=== PATIENT | male | born 1955 | race African-American/Black ===

== ENCOUNTER 2018-12-19 17:16 | Observation (INO) | payer OTHER ==
[2018-12-19 17:35] VITALS: BMI 29.0
--- NOTE | 2018-12-19 17:44 | PDOC ---
Rapid Medical Evaluation Chief Complaint: SIRS, Suspected/Possible Time Seen by Provider: 12/19/18 17:33 Medical Evaluation: Vital Signs Temp Pulse Resp BP Pulse Ox 99.7 F H 86 18 115/62 98 12/19/18 17:32 12/19/18 17:32 12/19/18 17:32 12/19/18 17:32 12/19/18 17:32 12/19/18 17:37 Pt c/o: fever/chills, infection? to lungs, sent by Dr. huang's office for weakness and cough, new PATRICIA on eliquis Pt on brief exam: Mild rll rhonchi, low grade temp, Pt ordered for: cbc, comp, lactic acid, cxr, iv Pt to proceed to the ED
[2018-12-19 19:03] LABS: BASO % 0.5 % (0-2.0); EOS % 0.5 % (0-4.5); HEMATOCRIT 42.5 % (35.4-49); HEMOGLOBIN 14.1 GM/dL (11.7-16.9); LYMPH % 17.9 % (8-40); MCH 29.9 pg (25.7-33.7); MCHC 33.1 g/dl (32.0-35.9); MEAN CELL VOLUME 90.4 fl (80-96); MEAN PLT VOLUME 8.8 fl (7.5-11.1); NEUT % 71.1 % (42.8-82.8); PLATELET COUNT 217 K/MM3 (134-434); RDW 13.7 % (11.9-15.9); WHITE BLOOD COUNT 10.5 K/mm3 (4.0-10.0)
[2018-12-19 19:36] LABS: ALBUMIN 3.5 g/dl (3.4-5.0); BILIRUBIN,TOTAL 0.8 mg/dL (0.2-1); CALCIUM 8.9 mg/dL (8.5-10.1); CREATININE 1.2 mg/dL (0.55-1.3); POTASSIUM 4.4 mmol/L (3.5-5.1)
--- NOTE | 2018-12-19 20:32 | PDOC ---
History of Present Illness - General Chief Complaint: SIRS, Suspected/Possible Stated Complaint: SENT BY DOCTOR Time Seen by Provider: 12/19/18 17:33 History Source: Patient Exam Limitations: No Limitations - History of Present Illness Initial Comments: 12/19/18 20:17 63 yo male pmh HTN, HLD, DM, CAD s/p PCI presents to the ED from PCP office for new onset afib started on eliquis. Pt admits to 3 days of URI symptoms with fevers and generalized body aches that resolved. Unknown when A fib began, pt does not know dosage of eliquis and occupational therapy instructor PCP does not have access to charts. Pt took am dosage including eliquis and ASA. Denies CP, SOB, back pain, changes in bowel or bladder habits. Pt had right sided calf swelling that resolved 2 days ago, denies calf tenderness, recent travel, CP, SOB Past History - Past Medical History Allergies/Adverse Reactions: Allergies Allergy/AdvReac Type Severity Reaction Status Date / Time No Known Allergies Allergy Verified 12/19/18 20:17 Home Medications: Ambulatory Orders Amlodipine Bes/Olmesartan Med [David 10-40 mg Tablet] 1 each PO DAILY 12/19/18 Aspirin [ASA -] 81 mg PO DAILY 12/19/18 Hydrochlorothiazide [Hctz -] 25 mg PO DAILY 12/19/18 Metoprolol Succinate [Toprol Xl -] 12.5 mg PO DAILY 12/19/18 Cardiac Disorders: Yes (Afib, CAD) COPD: No Diabetes: Yes HTN: Yes Hypercholesterolemia: Yes - Suicide/Smoking/Psychosocial Hx Smoking History: Current every day smoker Number of Cigarettes Smoked Daily: 10 Information on smoking cessation initiated: No Hx Alcohol Use: No Drug/Substance Use Hx: No *Physical Exam - Vital Signs Last Vital Signs Temp Pulse Resp BP Pulse Ox 100.3 F H 84 20 116/76 98 12/19/18 20:15 12/19/18 20:15 12/19/18 20:15 12/19/18 20:15 12/19/18 20:15 ED Treatment Course - LABORATORY CBC & Chemistry Diagram: 12/19/18 18:35 12/19/18 18:35 - ADDITIONAL ORDERS Additional order review: Laboratory Results 12/19/18 12/19/18 18:35 18:35 Sodium 137 Potassium 4.4 Chloride 100 Carbon Dioxide 26 Anion Gap 11 BUN 19 H Creatinine 1.2 Est GFR (CKD-EPI)AfAm 73.11 Est GFR (CKD-EPI)NonAf 63.08 Random Glucose 170 H Lactic Acid 1.6 Calcium 8.9 Total Bilirubin 0.8 AST 35 ALT 38 Alkaline Phosphatase 51 Total Protein 8.0 Albumin 3.5 12/19/18 18:35 RBC 4.70 MCV 90.4 MCHC 33.1 RDW 13.7 MPV 8.8 Neutrophils % 71.1 Lymphocytes % 17.9 Monocytes % 10.0 Eosinophils % 0.5 Basophils % 0.5 - RADIOLOGY Radiology Studies Ordered: Category Date Time Status DUPLEX VASCUL US-1 LEG [US] Stat Ultrasound 12/19/18 20:05 Ordered Medical Decision Making - Medical Decision Making 12/19/18 21:[address] Venegas, pt will be admitted to Tele obs with Cards consult to Dr. mSith Pt on Eliquis 12/19/18 22:09 Dr. Cruz occupational therapy instructor for Cardiology, case presented including elevated trop, states night dose of Eliquis is sufficient 12/19/18 23:[address] Sandhu, pt accepted to Hospitalist service *DC/Admit/Observation/Transfer Diagnosis at time of Disposition: Elevated troponin, Afib - Discharge Dispostion Condition at time of disposition: Stable Decision to Admit order: Yes - Referrals - Patient Instructions - Post Discharge Activity
[2018-12-19] MEDS ORDERED: ASPIRIN 81 MG CHEWABLE TABLETS PO ONE (21:39)
[2018-12-19] MEDS ORDERED: ASPIRIN 81 MG CHEWABLE TABLETS ONE (21:39)
[2018-12-19] MEDS ORDERED: ACETAMINOPHEN 1000 MG/100 ML VIAL (NON FORMULARY) IVPB ONE (21:39)
[2018-12-19] MEDS ORDERED: ACETAMINOPHEN INJECTION 100 ML IVPB ONE (21:39)
--- NOTE | 2018-12-19 22:37 | PN ---
Teaching Attending Note Name of Resident: Javier Sandhu ATTENDING PHYSICIAN STATEMENT I saw and evaluated the patient. I reviewed the resident's note and discussed the case with the resident. I agree with the resident's findings and plan as documented. SUBJECTIVE: Patient is a 63 year old man with a PMH of NIDDM, HTN, Tobacco use and HLD who was sent to the ER from the PCPs office with abnormal results. The patient was seen at Dr. Benavidez office yesterday, where he had an X-ray and blood work down. He was told by PCP to follow up at the ER concerning the results. The patient reports he was noted to be in rapid Afib at the office. The patient reports he s been having 2 days of generalized weakness, cough and leg swelling. The patient reports the leg swelling self-resolved about 1 day or 2 ago. Denies chest pain, SOB, back pain, recent travel, changes in bowel or bladder habits. OBJECTIVE: Alert Vital Signs Period Temp Pulse Resp BP Sys/Shepard Pulse Ox Last 24 Hr 99.7 F-100.3 F 84-86 18-20 115-116/62-76 98-98 HEENT: No Jaundice, eye redness or discharge, PERRLA, EOMI. Normocephalic, atraumatic. External ears are normal and hearing is grossly intact. No nasal discharge. Neck: Supple, nontender. No palpable adenopathy or thyromegaly. No JVD Chest: Good effort. Clear to auscultation and percussion. Heart: Irregularly irregular. No S3, rub or murmur Abdomen: Not distended, soft, nontender and no HSM. No rebound or guarding. Normal bowel sounds. Ext: Peripheral pulses intact. No leg edema. Fungal infection right big toe. Skin: Warm and dry. No petechiae, rash or ecchymosis. Neuro: Alert. Oriented x3. CN 2-12 grossly intact. Sensation grossly intact in all four extremities and DTR are symmetric. Psych: Appropriate mood and affect. Good insight. Home Medications Medication Instructions Recorded Amlodipine Bes/Olmesartan Med 1 each PO DAILY 12/19/18 [David 10-40 mg Tablet] Aspirin [ASA -] 81 mg PO DAILY 12/19/18 Hydrochlorothiazide [Hctz -] 25 mg PO DAILY 12/19/18 Metoprolol Succinate [Toprol Xl -] 12.5 mg PO DAILY 12/19/18 Abnormal Lab Results 12/19/18 12/19/18 18:35 18:35 WBC 10.5 H BUN 19 H Random Glucose 170 H Creatine Kinase 780 H Troponin I 0.20 H ASSESSMENT AND PLAN: 1. New onset Afib/Rule out ACS - Patient recently started on Eliquis and metoprolol for new onset Afib, now has elevated troponin, but no chest pain. EKG shows Afib with nonspecific T wave flattening. No DVT on leg doppler. Will admit to telemetry to rule out ACS. Had an ECHO on 12/07/18 that was normal. Will check TSH, fasting lipids and consult his cardiology to decide if he needs repeat ECHO. Mild leukocytosis and low grade fever are concerning, but there is no obvious source, though urinalysis is still pending. Says he had a cough with yellow sputum a few days and is a smoker, but has no infiltrate on CXR. Will send blood cultures, repeat rectal temperature and CBC and await result of urinalysis before deciding on antibiotics therapy. Will apply Clotrimazole antifungal cream to right big toe - patient counseled to stop walking barefoot on the beach and salt water in the [place]. 2. DM For now, we will implement sliding scale insulin regimen. Provide comprehensive diabetes care with patient teaching and counseling about the importance of adherence to prescribed diabetes regimen, euglycemia, eye care and foot care. 3. Tobacco Use Counseled on risks associated with tobacco use. We will provide patient all the necessary assistance to facilitate smoking cessation and prescribe Nicotine patch. 4. Overweight Counseled on the risks associated with being overweight. Will provide patient all the necessary assistance, counseling and positive reinforcement to facilitate weight loss. Consult mortar carrier. 5. Hypertension - Restart outpatient antihypertensive drugs and revise regimen to ensure smooth [id number] good BP control. Nonpharmacologic measures to control hypertension like weight loss, salt restriction and exercise discussed. 6. DVT prophylaxis - On Eliquis for Afib 7. Advance directives - Full code
--- NOTE | 2018-12-20 00:33 | HP ---
CHIEF COMPLAINT: Sent by PCP for EKG changes PCP: Dr. Yan Benavidez HISTORY OF PRESENT ILLNESS: Pt. is a 63 y.o. M w/ PMHx. of HTN, NIDDM, CAD(s/p two stents 10+ years ago), b/l carpal tunnel syndrome(s/p surgery on left hand) , and HLD presents with worsened swelling in the lower extremities. Pt. is confused as to why he was told to come into the hospital. Pt. endorses swelling of lower extrmeities R>L that started 2-4 days ago and resolved 2 days ago. Pt. endorses having upper respiratory symptoms and took echinaecia tea daily to reportedly goof effect. He does admit decreased appetite since these symptoms began but that it is now coming back. Pt. endorses a very dry mouth but no dysuria, hematuria, fever or chills. Pt. states he has submitted 3 UAs over the course of treatment. Pt. also endorses a productive cough with yellow sputum. Pt. currently denies any chest pain, shortness of breath, headache, abdominal pain, numbness or weakness. Pt. states he does not take HCTZ because it has decreased his ability to maintain an erection. ER course was notable for: (1)BCx., Ucx. and UA (2)CBC, BMP, EKG and SCR (3)Tylenol Recent Travel: No PAST MEDICAL HISTORY: As above PAST SURGICAL HISTORY: As above Social History: Smokin-2 cigs/ day for 1-2 years Alcohol: socially, but never more than 2 at one sitting Drugs: Denies Family History: Pt. denies father of heart disease, Pt. states that her uncle had a DVT that developed into PE. Allergies No Known Allergies Allergy (Verified 12/19/18 20:17) HOME MEDICATIONS: Home Medications Medication Instructions Recorded Amlodipine Bes/Olmesartan Med 1 each PO DAILY 12/19/18 [David 10-40 mg Tablet] Aspirin [ASA -] 81 mg PO DAILY 12/19/18 Hydrochlorothiazide [Hctz -] 25 mg PO DAILY 12/19/18 Metoprolol Succinate [Toprol Xl -] 12.5 mg PO DAILY 12/19/18 REVIEW OF SYSTEMS As above PHYSICAL EXAMINATION Vital Signs - 24 hr 12/19/18 12/19/18 17:32 20:15 Temperature 99.7 F H 100.3 F H Pulse Rate 86 Pulse Rate [ 84 Apical] Respiratory 18 20 Rate Blood Pressure 115/62 Blood Pressure 116/76 [Left Arm] O2 Sat by Pulse 98 98 Oximetry (%) GENERAL: Awake, alert, and fully oriented, in no acute distress. HEAD: Normal with no signs of trauma. EYES: Pupils equal, round and reactive to light, extraocular movements intact, sclera anicteric, conjunctiva clear. EARS, NOSE, THROAT: Ears normal, nares patent, no carotid bruit, oropharynx clear without exudates. Moist mucous membranes. NECK: Normal range of motion, supple without lymphadenopathy, JVD, or masses. LUNGS: Breath sounds equal, clear to auscultation bilaterally. No wheezes, and no crackles. No accessory muscle use. HEART: Regular rate and rhythm, normal S1 and S2 without murmur ABDOMEN: Soft, nontender, not distended, normoactive bowel sounds, no guarding, no rebound, no masses. MUSCULOSKELETAL: Normal range of motion at all joints. No bony deformities or tenderness. No CVA tenderness. UPPER EXTREMITIES: 2+ pulses, warm, well-perfused. No cyanosis. No clubbing. No peripheral edema. LOWER EXTREMITIES: 2+ dorsal pedal pulses, warm, well-perfused. No calf tenderness. No peripheral edema. Right Hallux fungal infection NEUROLOGICAL: Normal speech. Normal gait. PSYCHIATRIC: Cooperative. Good eye contact. Anxious and guarded, SKIN: Warm, dry flaky, normal turgor, normal capillary refill. Laboratory Results - last 24 hr 12/19/18 12/19/18 12/19/18 18:35 18:35 18:35 WBC 10.5 H RBC 4.70 Hgb 14.1 Hct 42.5 MCV 90.4 MCH 29.9 MCHC 33.1 RDW 13.7 Plt Count 217 MPV 8.8 Absolute Neuts (auto) 7.4 Neutrophils % 71.1 Lymphocytes % 17.9 Monocytes % 10.0 Eosinophils % 0.5 Basophils % 0.5 Nucleated RBC % 0 Sodium 137 Potassium 4.4 Chloride 100 Carbon Dioxide 26 Anion Gap 11 BUN 19 H Creatinine 1.2 Est GFR (CKD-EPI)AfAm 73.11 Est GFR (CKD-EPI)NonAf 63.08 Random Glucose 170 H Lactic Acid 1.6 Calcium 8.9 Total Bilirubin 0.8 AST 35 ALT 38 Alkaline Phosphatase 51 Creatine Kinase 780 H Creatine Kinase Index 0.4 CK-MB (CK-2) 3.4 Troponin I 0.20 H Total Protein 8.0 Albumin 3.5 ASSESSMENT/PLAN: Pt. is a 63 y.o. M w/ PMHx. of HTN, NIDDM, CAD(s/p two stents 10+ years ago), b/ l carpal tunnel syndrome(s/p surgery on left hand), and HLD presents with worsened swelling in the lower extremities. #New onset Afib associated with lower extremity edema c/w Telemtry evaluation ECHO on 12/07/18 that was normal f/u TSH Cardiology consult (Dr. Cruz) appreciated. ED resident discussed case w/ Dr. Fontenot and Eliquis 5mg BID is sufficient. Duplex Neg for DVT Trop 0.20--> 0.11 Denies chest pain #Leukocytosis w/ low grade temperature- resolving Hx. of fevers per Pt. to 102 degrees WBC count 10.9k--> 9.2k No clear source of infection Has fungal infection of R. Hallux, will start clomitrazole cream f/u BCx. f/u UCx. f/u UA--> though Pt. endorses that he has had 3 in the past few days which were all negative #HLD f/u lipid panel will base need to start statin on results #HTN Pt. refuses HCTZ- will consider restarting a new medication however BP is now within normal range. CXR: shows no acute pathology c/w David #NIDDM most recent labs from PCP office state A1c is 7.6 Hold oral medications BGM ACHS ISS ACHS #CAD s/p 2 stents c/w ASA #FEN no IVF, encourage PO intake monitor electrolytes and replete as needed Diabetic, Na controlled diet #DVT Ppx. c/w Eliquis BID Visit type - Emergency Visit Emergency Visit: Yes ED Registration Date: 12/19/18 Care time: The patient presented to the Emergency Department on the above date and was hospitalized for further evaluation of their emergent condition. - New Patient This patient is new to me today: Yes Date on this admission: 12/19/18 - Critical Care Critical Care patient: No
[2018-12-20 01:56] LABS: BASO % 0.9 % (0-2.0); EOS % 0.9 % (0-4.5); HEMATOCRIT 37.7 % (35.4-49); HEMOGLOBIN 12.7 GM/dL (11.7-16.9); LYMPH % 26.2 % (8-40); MCH 30.3 pg (25.7-33.7); MCHC 33.7 g/dl (32.0-35.9); MEAN PLT VOLUME 8.5 fl (7.5-11.1); PLATELET COUNT 189 K/MM3 (134-434); RBC 4.19 M/mm3 (4.00-5.60); RDW 13.7 % (11.9-15.9); WHITE BLOOD COUNT 9.2 K/mm3 (4.0-10.0)
--- NOTE | 2018-12-20 04:36 | PDOC ---
Documentation entered by Dolores Dailey SCRIBE, acting as scribe for Shelbie Darling MD. Shelbie Darling MD: This documentation has been prepared by the sumanthibe, Dolores Dailey SCRIBE, under my direction and personally reviewed by me in its entirety. I confirm that the documentation accurately reflects all work, treatment, procedures, and medical decision making performed by me. Attending Attestation - Resident Resident Name: Mario Lynne - ED Attending Attestation I have performed the following: I have examined & evaluated the patient, The case was reviewed & discussed with the resident, I agree w/resident's findings & plan - HPI HPI: 12/19/18 20:58 The patient is a 63 year old male with past medical history significant for DM, HTN, HLD was sent to the emergency department from PCPs office with abnormal results. The patient was seen at Dr. Benavidez office yesterday, where he had an X- ray and Blood work down. The patient reports following up with today for the results, and he was told by Go to follow up at the ER concerning the results. The patient reports he was noted to be in rapid Afib at the officer. The patient reports hes been having 2 days of generalized weakness, cough and leg swelling. The patient reports the leg swelling self-resolved about 1 day or 2 ago. Denies chest pain. Allergies: NKDA PCP: Dr. Chong Benavidez. - Physicial Exam PE: 12/19/18 23:43 GENERAL: Awake, alert, and fully oriented, in no acute distress HEAD: No signs of trauma EYES: PERRLA, EOMI, sclera anicteric, conjunctiva clear ENT: Auricles normal inspection, hearing grossly normal, nares patent, oropharynx clear without exudates. Moist mucosa NECK: Normal ROM, supple, no lymphadenopathy, JVD, or masses LUNGS: Breath sounds equal, clear to auscultation bilaterally. No wheezes, and no crackles HEART: Regular rate and rhythm, normal S1 and S2, no murmurs, rubs or gallops ABDOMEN: Soft, nontender, normoactive bowel sounds. No guarding, no rebound. No masses EXTREMITIES: Normal range of motion, no edema. No clubbing or cyanosis. No cords, erythema, or tenderness NEUROLOGICAL: Cranial nerves II through XII grossly intact. Normal speech, normal gait SKIN: Warm, Dry, normal turgor, no rashes or lesions noted. - Medical Decision Making 12/19/18 21:13 Pt's basic labs are normal; however his CPK and trop are elevated. He also has a hx of fevers at home, and today his fever is going up. 12/19/18 21:30 Call placed to Cardiology, waiting for a call back from Dr. Jalloh. 12/20/18 06:42 Pt admitted and awaiting a bed
[2018-12-20 05:44] LABS: URINE APPEARANCE CLEAR; URINE BILIRUBIN NEGATIVE (NEGATIVE); URINE COLOR YELLOW; URINE GLUCOSE (UA) NEGATIVE (NEGATIVE); URINE KETONE NEGATIVE (NEGATIVE); URINE LEUK ESTERASE NEGATIVE (NEGATIVE); URINE NITRITE NEGATIVE (NEGATIVE); URINE PROTEIN NEGATIVE (NEGATIVE)
[2018-12-20] MEDS ORDERED: CLOTRIMAZOLE 1% CREAM 15 GM TUBE TP SCH (10:00)
--- NOTE | 2018-12-20 10:44 | CONSULT ---
Consult Consult Specialty:: Cardiology Referred by:: ED/Medicine Reason for Consultation:: (+) Troponin, AFib - History of Present Illness Chief Complaint: cough and fever History of Present Illness: 63 yo AA male Followed by Dr. Venegas and Dr. Patel (Cards) Known DM Presented to PMD with 3 days of cough and fever to 101 Found to be in AFib and started on DOAC Sent to ED for further evaluation and found to have (+) low level troponin 0.2 to 0.11 Currently denies any chest pains, palps, dyspnea, (+) cough No thyroid problems or drug use - History Source History Provided By: Patient Limitations to Obtaining History: No Limitations - Past Medical History Endocrine: Yes: Diabetes Mellitus - Alcohol/Substance Use Hx Alcohol Use: No - Smoking History Smoking history: Current every day smoker Aproximately how many cigarettes per day: 10 Home Medications - Allergies Allergies/Adverse Reactions: Allergies Allergy/AdvReac Type Severity Reaction Status Date / Time No Known Allergies Allergy Verified 12/19/18 20:17 - Home Medications Home Medications: Ambulatory Orders Amlodipine Bes/Olmesartan Med [David 10-40 mg Tablet] 1 each PO DAILY 12/19/18 Aspirin [ASA -] 81 mg PO DAILY 12/19/18 Hydrochlorothiazide [Hctz -] 25 mg PO DAILY 12/19/18 Metoprolol Succinate [Toprol Xl -] 12.5 mg PO DAILY 12/19/18 Amoxicillin/Potassium Clav [Augmentin 500-125 Tablet] 1 each PO BID #10 tablet 12/20/18 Apixaban [Eliquis -] 5 mg PO BID #60 tablet 12/20/18 Family Disease History - Family Disease History Family History: Unremarkable Physical Exam Vital Signs: Vital Signs Temperature 98.1 F 12/20/18 07:32 Pulse Rate 74 12/20/18 07:32 Respiratory Rate 18 12/20/18 07:32 Blood Pressure 118/78 12/20/18 07:32 O2 Sat by Pulse Oximetry (%) 98 12/20/18 07:32 Constitutional: Yes: Well Nourished, No Distress Eyes: Yes: WNL Cardiovascular: Yes: Pulse Irregular Respiratory: Yes: CTA Bilaterally Gastrointestinal: Yes: Normal Bowel Sounds Extremities: Yes: WNL Edema: No Labs: CBC, BMP 12/20/18 01:40 12/19/18 18:35 Imaging - Results X-ray: Report Reviewed (No e/o radiographic pneumonia) Ultrasound: Report Reviewed (No DVT) EKG: Image Reviewed (ECG on 12/19/2018 at 20:31 Afib at 95/min) Assessment/Plan 63 yo male with h/o DM Now admitted with fever x 3 days and new onset AF 1) AF -Likely related to underlying HTN heart disease, DM and recent febrile illness -Well rate controlled now -Would continue his home Bystolic at 5mg daily -Continue Apixaban (CHADS-VASC = 3 favors AC) -May spontaneously convert as his fever goes down, but if not would pursue NICOLAS- guided DCCV on Saturday 2) (+) troponin -Flat trend, not consistent with ACS -Likely related to demand and fever state -
[2018-12-20 11:21] VITALS: TEMP 98.2
[2018-12-20] MEDS ORDERED: ACETAMINOPHEN 325 MG TABLET (FP) PO PRN (11:47)
[2018-12-20] MEDS ORDERED: APIXABAN 5 MG TABLET PO ONE (11:53)
[2018-12-20] MEDS ORDERED: NEBIVOLOL 5 MG TABLET (FP) PO SCH (12:00)
[2018-12-20] MEDS ORDERED: APIXABAN 5 MG TABLET PO SCH (12:00)
[2018-12-20 14:10] VITALS: BP 118/52; PULSE 84
[2018-12-20] MEDS ORDERED: ALBUTEROL SO4 0.083% IH SOL 2.5 MG/3 ML VIAL.NEB. NEB ONE (14:25)
[2018-12-20] MEDS ORDERED: AMOX TR/POT CLAV 500MG/125MG TABLETS (FP) PO ONE (14:26)
--- NOTE | 2018-12-20 14:41 | DS ---
Physical Exam: SUBJECTIVE: Patient seen and examined in the ED awaiting bed assignment. He was upset and wanted to go home. Explained that he was here for closer monitor (cardiac) as well as for fevers. but despite a long long conversation on monitoring his heart closer, he signed out AMA. OBJECTIVE: Patient is a 63 year old man with a PMH of NIDDM, HTN, Tobacco use and HLD who was sent to the ER from the PCPs office with abnormal results. The patient was seen at Dr. Benavidez office yesterday, where he had an X-ray and blood work down. He was told by PCP to follow up at the ER concerning the results. The patient reports he was noted to be in rapid Afib at the office. The patient reports he s been having 2 days of generalized weakness, cough and leg swelling. The patient reports the leg swelling self-resolved about 1 day or 2 ago. Denies chest pain, SOB, back pain, recent travel, changes in bowel or bladder habits. Vital Signs Period Temp Pulse Resp BP Sys/Shepard Pulse Ox Last 24 Hr 98.1 F-100.3 F 71-86 18-20 109-127/52-78 98-99 PHYSICAL EXAM GENERAL: The patient is awake, alert, and fully oriented, in no acute distress. HEAD: Normal with no signs of trauma. EYES: PERRL, extraocular movements intact, sclera anicteric, conjunctiva clear. ENT: Ears normal, nares patent, oropharynx clear without exudates, moist mucous membranes. NECK: Trachea midline, full range of motion, supple. LUNGS: Breath sounds equal, clear to auscultation bilaterally HEART: irregular ABDOMEN: Soft, nontender, nondistended, normoactive bowel sounds, no guarding, no rebound, no hepatosplenomegaly, no masses. EXTREMITIES: trace edema. NEUROLOGICAL: Normal speech, gait not observed. PSYCH: Normal mood, normal affect. SKIN: Warm, dry, normal turgor, no rashes or lesions noted. LABS Laboratory Results - last 24 hr 12/19/18 12/19/18 12/19/18 18:35 18:35 18:35 WBC 10.5 H RBC 4.70 Hgb 14.1 Hct 42.5 MCV 90.4 MCH 29.9 MCHC 33.1 RDW 13.7 Plt Count 217 MPV 8.8 Absolute Neuts (auto) 7.4 Neutrophils % 71.1 Lymphocytes % 17.9 Monocytes % 10.0 Eosinophils % 0.5 Basophils % 0.5 Nucleated RBC % 0 Sodium 137 Potassium 4.4 Chloride 100 Carbon Dioxide 26 Anion Gap 11 BUN 19 H Creatinine 1.2 Est GFR (CKD-EPI)AfAm 73.11 Est GFR (CKD-EPI)NonAf 63.08 POC Glucometer Random Glucose 170 H Lactic Acid 1.6 Calcium 8.9 Total Bilirubin 0.8 AST 35 ALT 38 Alkaline Phosphatase 51 Creatine Kinase 780 H Creatine Kinase Index 0.4 CK-MB (CK-2) 3.4 Troponin I 0.20 H Total Protein 8.0 Albumin 3.5 Triglycerides Cholesterol Total LDL Cholesterol HDL Cholesterol TSH Urine Color Urine Appearance Urine pH Ur Specific [place] Urine Protein Urine Glucose (UA) Urine Ketones Urine Blood Urine Nitrite Urine Bilirubin Urine Urobilinogen Ur Leukocyte Esterase 12/20/18 12/20/18 12/20/18 01:40 01:40 05:20 WBC 9.2 RBC 4.19 Hgb 12.7 Hct 37.7 MCV 90.0 MCH 30.3 MCHC 33.7 RDW 13.7 Plt Count 189 MPV 8.5 Absolute Neuts (auto) 5.8 Neutrophils % 63.0 Lymphocytes % 26.2 D Monocytes % 9.0 Eosinophils % 0.9 Basophils % 0.9 Nucleated RBC % 0 Sodium Potassium Chloride Carbon Dioxide Anion Gap BUN Creatinine Est GFR (CKD-EPI)AfAm Est GFR (CKD-EPI)NonAf POC Glucometer Random Glucose Lactic Acid Calcium Total Bilirubin AST ALT Alkaline Phosphatase Creatine Kinase Creatine Kinase Index CK-MB (CK-2) Troponin I 0.11 H Total Protein Albumin Triglycerides Cholesterol Total LDL Cholesterol HDL Cholesterol TSH Urine Color Yellow Urine Appearance Clear Urine pH 6.0 Ur Specific [place] 1.017 Urine Protein Negative Urine Glucose (UA) Negative Urine Ketones Negative Urine Blood Negative Urine Nitrite Negative Urine Bilirubin Negative Urine Urobilinogen 1.0 Ur Leukocyte Esterase Negative 12/20/18 12/20/18 12/20/18 06:17 07:57 07:57 WBC RBC Hgb Hct MCV MCH MCHC RDW Plt Count MPV Absolute Neuts (auto) Neutrophils % Lymphocytes % Monocytes % Eosinophils % Basophils % Nucleated RBC % Sodium Potassium Chloride Carbon Dioxide Anion Gap BUN Creatinine Est GFR (CKD-EPI)AfAm Est GFR (CKD-EPI)NonAf POC Glucometer 135 Random Glucose Lactic Acid Calcium Total Bilirubin AST ALT Alkaline Phosphatase Creatine Kinase 536 H Creatine Kinase Index 0.5 CK-MB (CK-2) 3.0 Troponin I 0.08 H Total Protein Albumin Triglycerides 86 Cholesterol 135 Total LDL Cholesterol 104 H HDL Cholesterol 24 L TSH 1.05 Urine Color Urine Appearance Urine pH Ur Specific [place] Urine Protein Urine Glucose (UA) Urine Ketones Urine Blood Urine Nitrite Urine Bilirubin Urine Urobilinogen Ur Leukocyte Esterase HOSPITAL COURSE: Date of Admission:12/19/18 Date of Discharge: 12/20/18 Patient was seen and examined in the ED. He is alert and oriented to person, place, time and situation. He is here for cardiac monitoring and also has positive troponins. Further, he had a high grade temperature and was pancultured. He is upset and wants to go home. Asked him to re consider leaving and stay until tomorrow to that we can monitor his heart closer, as well as monitor for any fevers. He informed me that no matter what I told him, he will leave and go home but willing to come back if he feels worse. He denies any chest pain or shortness of breath. He signed the AMA in my presence and I informed him that he is risking sudden if he leaves AMA. he signed anyway and is willing to take the risk. He confirmed that he had no allergies and so I called in Augmentin 500mg x 5 days for him with instructions to see his PCP on Saturday to see if he should continue with this medication (blood cultures pending) I called in Eliquis to his pharmacy but tells me that he has this medication at home already. He also has Bystolic. Minutes to complete discharge: 45 Discharge Summary Reason For Visit: ATRIAL FIBRILLATION,ELEVATED TROPONIN LEVEL Current Active Problems Afib (Acute) Elevated troponin (Acute) Condition: Stable - Instructions Referrals: Neftali Benavidez MD [Primary Care Provider] - Disposition: AGAINST MEDICAL ADVICE - Home Medications Comprehensive Discharge Medication List: Ambulatory Orders Amlodipine Bes/Olmesartan Med [David 10-40 mg Tablet] 1 each PO DAILY 12/19/18 Aspirin [ASA -] 81 mg PO DAILY 12/19/18 Hydrochlorothiazide [Hctz -] 25 mg PO DAILY 12/19/18 Metoprolol Succinate [Toprol Xl -] 12.5 mg PO DAILY 12/19/18 Amoxicillin/Potassium Clav [Augmentin 500-125 Tablet] 1 each PO BID #10 tablet 12/20/18 Apixaban [Eliquis -] 5 mg PO BID #60 tablet 12/20/18 This patient is new to me today: Yes Date on this admission: 12/20/18 Emergency Visit: Yes ED Registration Date: 12/19/18 Care time: The patient presented to the Emergency Department on the above date and was hospitalized for further evaluation of their emergent condition. Critical Care patient: No - Discharge Referral Referred to [facility] Med P.C.: No
[2018-12-20] MEDS ORDERED: AMOX TR/POT CLAV 500MG/125MG TABLETS (FP) ONE (14:43)
--- NOTE | 2018-12-21 15:17 | EKG ---
Test Reason : Blood Pressure : / mmHG Vent. Rate : 095 BPM Atrial Rate : 416 BPM P-R Int : 000 ms QRS Dur : 086 ms QT Int : 348 ms P-R-T Axes : 000 -60 050 degrees QTc Int : 437 ms ATRIAL FIBRILLATION LEFT AXIS DEVIATION INFERIOR INFARCT , AGE UNDETERMINED POSSIBLE ANTERIOR INFARCT , AGE UNDETERMINED ABNORMAL ECG NO PREVIOUS ECGS AVAILABLE Confirmed by SHIKHA HERNANDEZ MD ([id number]) on 12/21/2018 3:17:07 PM Referred By: Confirmed By:SHIKHA HERNANDEZ MD
== END 2018-12-20 14:45 | disposition left against medical advice (07) ==
LOC: JER 17:16 → JERBED 21:23
PROVIDERS: ADMIT Internal Medicine; ATTEND Nurse Practitioner Family
PROC: 3E033NZ Introduction of Analgesics, Hypnotics, Sedatives into Peripheral Vein, Percutaneous Approach (ICD-10-PCS; principal; 2018-12-19)
DX: I48.91 Unspecified atrial fibrillation (principal); R77.8 Other specified abnormalities of plasma proteins; I10 Essential (primary) hypertension; E78.5 Hyperlipidemia, unspecified; E11.9 Type 2 diabetes mellitus without complications; I25.10 Atherosclerotic heart disease of native coronary artery without angina pectoris; F17.210 Nicotine dependence, cigarettes, uncomplicated; D72.829 Elevated white blood cell count, unspecified; R50.9 Fever, unspecified; E66.3 Overweight; Z68.29 Body mass index [BMI] 29.0-29.9, adult; Z79.01 Long term (current) use of anticoagulants; Z95.5 Presence of coronary angioplasty implant and graft
CPT/HCPCS: 36415; 71046-TC-FY; 80053; 80061; 81003; 82550; 82553; 82962; 83605; 83721; 84443; 84484; 85025; 87040; 87086; 93005; 93010; 93971-TC; 99285-25; G0378; J0131